=== PATIENT | male | born 1970 | race Caucasian/White ===

== ENCOUNTER 2018-06-07 07:46 | Emergency (ER) | payer MEDICARE, SELFPAY ==
--- NOTE | 2018-06-07 07:51 | ED.GENADUL_ITS ---
Discharge Plan Disposition Patient Disposition: HOME Condition: Stable Discharge Details Chief Complaint: RespSymp Clinical Impression: Cough Primary Care Provider: Bhargav Harper ED Provider: Alondra Gonzalez Discharge Instructions Instructions: Azithromycin (By mouth), Acute Cough (ED) Additional Instructions: Please return immediately to the emergency department if you develop any new or worsening symptoms or if you become otherwise concerned. It is extremely important that you make an appointment to be seen by your primary care doctor within the next 1 week in follow-up for this visit. Referrals: Bhargav Harper MD [Primary Care Provider] - Discharge Data Discharge Date/Time-TO BE ENTERED AT DEPARTURE: 06/07/18 10:27 Medical Decision Making Alfonso Sanabria is a 47-year-old man with a history of CP and no other major medical problems presenting to the emergency department with 2 weeks of cough without shortness of breath or fever. On exam patient is nontoxic-appearing. He has an intermittent dry cough, there is no whoop. Lungs are clear to auscultation bilaterally. Exam/history not consistent with sepsis, metabolic/ lyte derangement, ACS, acute aortic pathology. Concern for viral respiratory infection versus bacterial pneumonia. Doubt pertussis. Plan for flu swab, chest x-ray, albuterol for possible improvement in cough. Pt reports improvement after albuterol inh. CXR okay. Flu neg. Plan to update Tdap, Pt caring for young children, has had Tdap since childhood. Given persistence and recent worsening of cough, concern for possible occult PNA. Will treat with azithro. Lengthy discussion with Pt re: RTED precautions and importance of outpt f/u with PCP. Pt is amenable to the plan. Medical Records Medical records reviewed: Yes I reviewed the patient's medical records. Imaging Data Radiologic Study: Attestation: I personally reviewed and interpreted this imaging study as follows: Radiologist's impression: CHEST X-RAY: PA and lateral. No priors for comparison. The heart is normal in size. The lungs are clear. The mediastinal structures and pleura appear intact. CONCLUSION: Normal chest. Lab Data Lab results reviewed: Yes I reviewed the patient's lab results. HPI General Mode of arrival: ambulatory . Date/Time Provider Initiated Documentation: 06/07/18 07:50 . Limitations to Documentation: no limitations . Information obtained by: patient, family, RN notes reviewed and old records reviewed . HPI Narrative: Alfonso Sanabria is a 47-year-old man with history of CP and no other major medical problems presenting to the emergency department with cough. Patient reports that 2 weeks ago he felt like he had sinus symptoms with sinus pain and nasal congestion. He feels like this has moved into his chest , and he no longer has significant sinus symptoms, but has been coughing. Patient reports that he has coughing spells that are very severe and cause him to be lightheaded. Cough is productive. He denies having any pain, other than mild low left-sided back pain that he thinks is muscle spasm from being bent over during coughing. No fever, vomiting/diarrhea diarrhea, shortness of breath , rash, numbness/tingling/weakness, rash. He reports that he has been eating and drinking as usual. No recent travel. Takes no medications. Former smoker. 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 Related Data Allergies Allergy/AdvReac Type Severity Reaction Status Date / Time No Known Allergies Allergy Unverified 06/07/18 07:59 Review of Systems Review of Systems Constitutional: denies fevers Eyes: denies eye pain ENT: denies facial pain, dental pain, sore throat Cardiovascular: denies chest pain, edema Respiratory: denies SOB, reports cough GI: denies abdominal pain, vomiting, diarrhea : denies flank pain MSK: reports mild low back pain, denies neck pain, arthralgias, myalgias Skin: denies rash Neuro: denies headaches, lightheadedness, weakness [facility] Social History Smoking/Tobacco Use Status: Former Tobacco Use Exam Narrative Exam Narrative: Constitutional: well and [id number], pleasant, conversing normally HENT: head atraumatic, normocephalic normal inspection, mucous membranes moist Eyes: conjunctiva normal, sclera normal, pupils 3mm b/l Neck: no stridor, normal ROM, trachea midline Chest: normal inspection Resp: normal work of breathing, LCTAB Cardio: normal rate, normal rhythm, no murmur appreciated GI: abdomen soft, non-tender, non-distended Back: normal inspection, no rash Skin: warm, dry, normal color, no rash Neuro: alert, not altered, grossly non-focal, normal tone Ext: no edema Psych: normal mood, normal affect, normal behavior
[2018-06-07 07:52] VITALS: BP 129/91; PULSE 67; RESP 16; TEMP 36.6; O2SAT 97
--- NOTE | 2018-06-07 08:15 | DI.RAD_ITS ---
SYMPTOM/DIAGNOSIS: COUGH CHEST X-RAY: PA and lateral. No priors for comparison. The heart is normal in size. The lungs are clear. The mediastinal structures and pleura appear intact. CONCLUSION: Normal chest.
[2018-06-07] MEDS: Inhaler, Assist Device 1 EACH MC (08:32)
[2018-06-07] MEDS: Albuterol HFA 8 GM 60 PUFF INH IH (08:32)
[2018-06-07] MEDS: Azithromycin 250 MG TAB 500 MG PO (10:20)
[2018-06-07 10:26] VITALS: PULSE 76; RESP 16; TEMP 36.6; O2SAT 97
== END 2018-06-07 10:27 | disposition home or self-care (01) ==
LOC: ER 10:29
PROVIDERS: Emergency Provider Student in an Organized Health Care Education/Training Program; PCP Internal Medicine
DX: R05 Cough (principal); R42 Dizziness and giddiness; G80.9 Cerebral palsy, unspecified; Z87.891 Personal history of nicotine dependence
CPT/HCPCS: 87449; 90471; 99284; 71046; 99285

== ENCOUNTER 2018-08-19 08:31 | Outpatient (REF) | payer MEDICARE, SELFPAY ==
[2018-08-19 13:26] LABS: ALT 35 U/L (12-78); AST 22 U/L (15-37); Albumin 4.1 g/dL (3.4-5.0); Alkaline Phosphatase 68 U/L (46-116); Anion Gap 8.5 mmol/L (3-11); BUN 20 mg/dL (7-18); Bilirubin, Total 0.5 mg/dL (0.2-1.0); CO2 27.5 mmol/L (21.0-32.0); CREATININE 0.98 mg/dL (0.70-1.30); Calcium 9.2 mg/dL (8.5-10.1); Chloride 104 mmol/L (98-107); Cholesterol 118 mg/dL (50-200); Glucose 90 mg/dL (70-100); HDL Cholesterol 37 mg/dL (40-60); LDL CHOLESTEROL 63 mg/dL (<100); Potassium 4.4 mmol/L (3.5-5.1); Sodium 140 mmol/L (136-145); Total Protein 7.4 g/dL (6.4-8.2); Triglyceride 79 mg/dL (30-150)
== END 2018-08-19 08:51 ==
LOC: NCHCN 08:31
PROVIDERS: PCP Internal Medicine; Visit Provider Family Medicine
DX: G80.9 Cerebral palsy, unspecified (principal); Z13.6 Encounter for screening for cardiovascular disorders; Z82.49 Family history of ischemic heart disease and other diseases of the circulatory system
CPT/HCPCS: 80053; 80061; 83721

== ENCOUNTER → 2020-08-30 13:23 | Outpatient (BNVA) | payer MEDICARE, SELFPAY | PROVIDERS: PCP Internal Medicine; Referring Provider Internal Medicine; Visit Provider Physical Therapy Assistant | DX: Z12.11 Encounter for screening for malignant neoplasm of colon (principal) ==

== ENCOUNTER 2020-09-13 02:34 | Outpatient (CLI) | payer MEDICARE, SELFPAY ==
[2020-09-14 15:32] LABS: COVID-19 RT-PCR UVMMC Result Negative (Negative)
== END 2020-09-13 02:35 | disposition home or self-care (01) ==
LOC: LBO 02:35
PROVIDERS: PCP Internal Medicine; Visit Provider Surgery
DX: Z20.822 Contact with and (suspected) exposure to COVID-19 (principal); Z01.818 Encounter for other preprocedural examination
CPT/HCPCS: U0003; U0005

== ENCOUNTER 2020-09-17 07:05 | Day surgery (SDC) | payer MEDICARE, SELFPAY ==
--- NOTE | 2020-09-17 06:46 | COLE_ITS ---
Date of service: 09/17/20 Time of Service: 08:16 Colonoscopy Report Date of procedure: 09/17/20 Pre-op diagnosis general: Colon Cancer Screening Post-op diagnosis procedure note: other (mild diverticulosis, one polyp) Procedure: Colonoscopy with polypectomy Surgeon: Isela Borrero Anesthesia proc note operative: other (General/ASA 2/Danielito Billings, SHAR) Estimated blood loss (mL): 3 Pathology: other (rectal polyp) Complications: None Disposition: same day Indications: The patient is here for Colonoscopy pre-op. He has no family history of colon cancer. He has not had any bowel habit changes. -Discussed colonoscopy bowel prep as well as the procedure. Discussed possible complications of the procedure to include bleeding, pain, perforation, missed small lesion/polyp, sore throat, aspiration and adverse reaction to the medications. Questions were answered to patient?s satisfaction. No guarantees were implied or given. Prep: Miralax/Dulcolax Procedure Start Time: 08:16 Procedure End Time: 08:37 Retraction Time: 14 minutes Findings: one small polyp mild sigmoid diverticulosis Procedure Description: After informed consent was obtained the patient was taken to the procedure room and placed in a left decubitous position. Monitors were applied and a time out was done. The patients name, date of , procedure, allergies to medications and metal in their body was reviewed. The patient was then sedated. Once sedated and comfortable a rectal exam was done. External exam was normal. Internal exam revealed a normal sphincter tone and no palpable masses. The prostate felt smooth. The scope was then introduced and retro-flexed. No internal hemorrhoids, polyps or masses were identified on retro-flexion. The scope was then advanced to the cecum without difficulty. The ileocecal vlave and appendiceal orifice were identified. The prep was good. The scope was then slowly retracted over 14 minutes back into the rectum. Polyps were removed with cold forceps in the rectum. There was mild sigmoid diverticulosis noted. The scope was removed and the patient was woken up and taken back to Same day surgery in stable condition. The patient tolerated the procedure well and there were no immediate complicati ons. Follow up: The patient should follow up in 5 years unless they develop changes in bowel habits or other new gastrointestinal complaints.
--- NOTE | 2020-09-17 06:46 | W.PM.DSUDISC ---
Discharge Plan Disposition Patient Disposition: HOME Condition: Good Discharge Details Reason For Visit: Colon Cancer Screening Attending Provider: Isela Borrero Primary Care Provider: Bhargav Harper Home Meds and New Rx's Prescriptions: Continued polyethylene glycol 3350 [Miralax] 17 gram/dose powder 17 g PO DAILY RF: 0 Discontinued polyethylene glycol 3350 17 gram/dose powder 238 g PO ONCE Qty: 238 RF: 0 bisacodyl [Dulcolax (bisacodyl)] 5 mg tablet,delayed release (DR/EC) 5 mg PO ONCE Qty: 4 RF: 0 Discharge Instructions Instructions: Diverticulosis (DC) Additional Instructions: Findings: polyp mild diverticulosis Follow up: 5 years Please call if you develop: fevers >101.5 Nausea or Vomiting Abdominal pain that is not transient DAY SURGERY UNIT POST ENDOSCOPY INSTRUCTIONS 1. Because there will be medication in your system for the next 24 hours, you may feel a little sleepy. Your coordination will be affected. Therefore: a. Do not drive or operate dangerous equipment for 24 hours. b. Do not drink alcohol beverages for 24 hours (not even beer). c. Plan to go home and rest for the day. 2. Generally there are no restrictions on your activity after a day or so has gone by, but you may feel a bit fatigued for a few days. 3 After you arrive home you may have a light meal and return to a normal diet as you can tolerate it without feeling sick to your stomach. 4. After surgery, you may feel pain or discomfort. This should be only transient, but if it persists please contact your doctor. 5. If there are any questions regarding the findings of your procedure, please feel free to contact your doctor. 6. If you are unable to contact your doctor with a problem, contact the hospital at [phone]. 7. Continue all your regular medications unless directed otherwise. I understand the above instructions and have no questions. Signature of Patient or Responsible Adult Escort Date/Time Name of Responsible Adult Escort Signature of Nurse Date/Time Activity:: Activity as Tolerated Diet:: As Tolerated Discharge Orders Discharge Orders: Discharge Order (Routine); Ordered 09/17/20 Ordered By: Isela Borrero
[2020-09-17 07:26] VITALS: BP 140/101; PULSE 90; RESP 18; TEMP 36.5; O2SAT 98
[2020-09-17] MEDS: Lactated Ringers 1,000 ML 80 ML IV (07:52)
--- NOTE | 2020-09-17 08:20 | BOWEL_PTH ---
PATIENT: Alfonso Sanabria LOC: [facility] U#:[id number] AGE/SX: 50/M ROOM: RE09/17/[address]: Isela Borrero MD : 1970 BED: DIS: 09/17/2020 SPEC #: [id number] RECD: 09/17/20 12:42 STATUS: ISSA RE #: [id number] SONY: 09/17/20 08:[address]: Isela Borrero DEPT: Surgical Specimen RECD BY: Chely Giraldo ENTERED: 09/17/20 12:42 SP TYPE: Bowel OTHR DR: Bhargav Harper Tissues: 1 - BIOPSY BOWEL Procedures: GROSS AND MICRO LEVEL 4 Comments: [id number]
[2020-09-17 09:07] VITALS: BP 136/80; PULSE 73; RESP 20; TEMP 36.5; O2SAT 100
== END 2020-09-17 09:37 | disposition home or self-care (01) ==
LOC: SUR 07:05
PROVIDERS: PCP Internal Medicine; Visit Provider Surgery
PROC: 0DJD8ZZ Inspection of Lower Intestinal Tract, Via Natural or Artificial Opening Endoscopic (ICD-10-PCS; CPT 45378; principal; 2020-09-17 08:15)
DX: Z12.11 Encounter for screening for malignant neoplasm of colon (principal); K62.1 Rectal polyp; K57.30 Diverticulosis of large intestine without perforation or abscess without bleeding; G80.9 Cerebral palsy, unspecified
CPT/HCPCS: 45380; 88305; J2001

== ENCOUNTER 2020-09-22 13:56 | Emergency (ER) | payer MEDICARE, SELFPAY ==
[2020-09-22 13:59] VITALS: BP 165/103; PULSE 79; TEMP 36.6; O2SAT 98
--- NOTE | 2020-09-22 14:22 | ED.GENADUL_ITS ---
Discharge Plan Disposition Patient Disposition: HOME Condition: Stable Discharge Details Clinical Impression: Conjunctivitis Primary Care Provider: Cici Presley ED Provider: Bradford Casiano Home Meds and New Rx's Prescriptions: No Action polyethylene glycol 3350 [Miralax] 17 gram/dose powder 17 g PO DAILY RF: 0 Discharge Instructions Instructions: Conjunctivitis (ED) Additional Instructions: Erythromycin eye ointment as directed. Practice good hand washing. Please watch for new/worsening symptoms and return to the ER for any concerns. Contact your primary care provider on Thursday to discuss outpatient reevaluation Discharge Data Discharge Date/Time-TO BE ENTERED AT DEPARTURE: 09/22/20 14:27 Medical Decision Making 50-year-old gentleman, wears glasses but no contacts. He presents with left eye irritation, crusting and drainage began this morning, went to bed last night asymptomatic. Clinically this appears to be classic conjunctivitis. He has no additional medical concerns at this time. No signs of trauma, patient denies trauma. Extremely low suspicion for diagnoses such as foreign body, corneal abrasion, hyphema, glaucoma, etc. Discussed my thought process with patient. He is comfortable treating with antibiotics for conjunctivitis. Patient was given first dose of erythromycin eye ointment here in the ER. Medical Records Medical records reviewed: Yes I reviewed the patient's medical records. HPI General Mode of arrival: ambulatory . Date/Time Provider Initiated Documentation: 09/22/20 13:58 . Limitations to Documentation: no limitations . Information obtained by: patient . HPI Narrative: This is a 50-year-old gentleman, history of cerebral palsy, who wears glasses but no contacts. He reports that he went to bed last night asymptomatic, awoke this morning with le ft eye redness, irritation, crusting. He reports that the symptoms are itchy and irritation but no true pain. Denies blurry or double vision. Denies any injury to his eye. Denies any other symptoms such as headache, fever, ear pain, sore throat, cough, shortness of breath. No additional questions or concerns. Related Data Home Medications Medication Instructions Recorded Confirmed polyethylene glycol 3350 17 17 g PO DAILY 07/11/20 09/22/20 gram/dose oral powder Allergies Allergy/AdvReac Type Severity Reaction Status Date / Time No Known Allergies Allergy Unverified 09/22/20 14:02 General Stated Complaint: EyeProblem CRYSTAL: 4 Review of Systems Constitutional Constitutional: Denies fever(s) and Denies headache(s) Eyes Eyes: Denies change in vision, Denies diplopia, Reports eye discharge, Reports irritation and Denies photophobia ENT Ears, Nose, Mouth, and Throat: Denies otalgia, Denies headache(s) and Denies sore throat Integumentary/Breasts Skin/Breast: Denies rash Neurologic Neurologic: Denies headache(s) [facility] Medical History Cerebral palsy (R) sided weakness. Ambulates with a limp, and per pt. 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 Marijuana: t-7, couple hits Do you feel safe at home: Yes Do you feel safe in your relationship?: Yes Exam Const General: cooperative, healthy appearing, comfortable and no acute distress Orientation: alert and awake [facility] Head: normal to inspection, normocephalic and atraumatic General nose exam: external nose normal Face and sinus: normal facial exam Mouth: moist mucous membranes Eyes General: appearance normal, both eyes and all related structures Periorbital: periorbital findings normal Eyelids: eyelids normal and other (Left eyelid flipped, no foreign body) Conjunctivae: conjunctival abnormality left conjunctival injection and discharge purulent Sclera: sclerae normal Cornea: corneas normal Pupils: PERRL EOM: EOM intact bilaterally Direct ophthalmoscopy: normal light reflex Neck Neck: normal visual inspection, full ROM, no lymphadenopathy, trachea midline, supple and nontender Resp Effort & Inspection: normal respiratory effort and able to speak in complete sentences Skin General skin exam: no rashes or lesions noted Neuro General: patient alert, patient awake, moves all extremities and no focal motor deficits Cognition: normal cognition Speech: speech normal Sensory Exam: no sensory deficits noted Psych Appearance: grossly normal Mental Status: mental status grossly normal Course Vital Signs Vital signs: Vital Signs Temperature 36.6 C 09/22/20 13:59 Pulse 79 09/22/20 13:59 Blood Pressure 165/103 H 09/22/20 13:59 Pulse Oximetry 98 09/22/20 13:59 Temperature 36.6 C 09/22/20 13:59 Pulse 79 09/22/20 13:59 Respiratory Effort 09/22/20 14:17 Blood Pressure 165/103 H 09/22/20 13:59 Blood Pressure Position Sitting 09/22/20 13:59 Pulse Oximetry 98 09/22/20 13:59 Oxygen Delivery Method Room Air 09/22/20 13:59 Oxygen Flow Rate 0 09/22/20 13:59 Pain Level 5 09/22/20 13:59
[2020-09-22] MEDS: Erythromycin Ophth Oint 3.5 GM TUBE OS (14:26)
== END 2020-09-22 14:27 | disposition home or self-care (01) ==
PROVIDERS: Emergency Provider Physician Assistant; PCP Family Medicine
DX: H10.32 Unspecified acute conjunctivitis, left eye (principal)
CPT/HCPCS: 99283

== ENCOUNTER 2021-09-23 10:30 | Emergency (ER) | payer MEDICARE, MEDICAID, SELFPAY ==
[2021-09-23 10:35] VITALS: BP 131/80; PULSE 70; RESP 16; TEMP 36.6; O2SAT 98
--- NOTE | 2021-09-23 10:45 | DI.RAD_ITS ---
Exam(s) XR RIBS RT W PA LAT CHEST EXAM: XR RIBS RT W PA LAT CHEST CLINICAL HISTORY: Fall, Right Rib Pain TECHNIQUE: 2D digital imaging was performed. COMPARISON: CR XR CHEST 2V PA LATERAL from 06/07/2018 FINDINGS: MEDIASTINUM: Normal. HEART: Normal. PULMONARY VASCULATURE: Normal. LUNGS: Clear. PLEURAL SPACE: No pleural effusion or pneumothorax. BONE: Right ribs: Nondisplaced rib fracture distal 10th rib IMPRESSION: Nondisplaced fracture right 10th rib. DATA REPOSITORY: RADIATION DOSE DELIVERED:
--- NOTE | 2021-09-23 10:49 | ED.GENADUL_ITS ---
Discharge Plan Disposition Patient Disposition: HOME Condition: Stable Discharge Details Clinical Impression: Right rib fracture Primary Care Provider: Cici Presley ED Provider: Rosenda Valenzuela Home Meds and New Rx's Prescriptions: No Action polyethylene glycol 3350 [Miralax] 17 gram/dose powder 17 g PO DAILY 0RF Discharge Instructions Instructions: Rib Fracture (ED) Additional Instructions: X-rays show a single nondisplaced rib fracture on #10. No other evidence for pneumonia or collapsed lung. CT of your head shows nothing acute. Continue to apply ice and alternate heat, deep breathing. You may guard your rib cage when coughing or doing any lifting. Return sooner or be seen for any productive cough, fever, shortness of breath or any worsening pain. Follow up with primary care provider in 3-5 days. Return to ED sooner if any worsening or concerns. Increase oral fluids. Please take Tylenol or Ibuprofen with food every 4-6 hours as needed for pain and swelling. Referrals: Cici Presley [Primary Care Provider] - 3 days Discharge Data Discharge Date/Time-TO BE ENTERED AT DEPARTURE: 09/23/21 12:33 Medical Decision Making 51-year-old male presents to the ER status post a slip and fall on the ice on Thursday. He reports that he hit the right side of his head and right side of his chest. He denies any loss of consciousness. He does have a healing contusion noted to his right frontal scalp and some ecchymosis around his right orbit. Head CT benefits versus risk discussed with patient. At this time he agrees to have a head CT done to rule out intracranial hemorrhage or other abnormality. Chest x-ray rib series with PA chest ordered to rule out rib fractures. Head CT results show nothing acute he does have some left-sided encephalomalacia which is most likely related to his cerebral palsy. X-ray shows a nondisplaced fracture of the right 10th rib. No pleural effusion no pneumothorax. Discussed results with patient who verbalized understanding. Discussed home care regarding coughing or deep breathing. I did discuss strict return instructions and red flags such as increased shortness of breath, productive cough, fever, worsening pain or any concerns. Patient was hemodynamically stable and alert and oriented and remained so throughout his stay upon discharge. This text was generated using Sensorination system, please disregard any oddities of phrase or misspellings. HPI General Mode of arrival: ambulatory . Date/Time Provider Initiated Documentation: 09/23/21 10:39 . Limitations to Documentation: no limitations . Information obtained by: patient, RN notes reviewed and old records reviewed . HPI Narrative: 50-year-old male presents to the ER status post a slip and fall on the ice on Thursday. He reports that he hit the right side of his head and right side of his chest. He denies any loss of consciousness. He does have a healing contusion noted to his right frontal scalp and some ecchymosis around his right orbit. He does complain of some right lateral flank pain. Lung sounds are clear bilat erally. No ecchymosis or contusion noted to his torso. He denies any abdominal pain no chest pain, he denies any problems urinating or blood in his urine. No other associated symptoms. He denies any blurry vision or nausea. Past medical history include cerebral palsy and he does have some right arm contractures. Related Data Home Medications Medication Instructions Recorded Confirmed polyethylene glycol 3350 17 17 g PO DAILY 07/11/20 09/23/21 gram/dose oral powder (Miralax) Allergies Allergy/AdvReac Type Severity Reaction Status Date / Time No Known Allergies Allergy Unverified 09/23/21 10:41 General Stated Complaint: Trauma CRYSTAL: 3 Review of Systems All systems reviewed & are unremarkable except as noted in HPI and below Constitutional Constitutional: Denies weakness ENT Ears, Nose, Mouth, and Throat: Reports as per HPI, Denies dizziness and Denies neck pain Comments: Contusion and ecchymosis noted to his right frontal and right periorbital area. No cabrera sign. Musculoskeletal Musculoskeletal: Denies neck pain Neurologic Neurologic: Reports as per HPI, Denies dizziness and Denies weakness [facility] All Active Problems (Updated 09/23/21 @ 12:23 by Rosenda Valenzuela) Right rib fracture (Acute) Conjunctivitis (Acute) Colon polyp, hyperplastic (Acute ~08/2020) Medical History Cerebral palsy (R) sided weakness. Ambulates with a limp, and per pt. 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 Skin: Warm and Dry HEENT: Head: No palpable deformities, Normocephalic Eyes: Pupils PERRLA, EOM's intact. No periorbital eccymosis or step off Ears: Canal patent. Tympanic membranes are clear . No cabrera's sign, no hemptympanum. Nose/Face: Right frontal scalp healing contusion, yellow in color, ecchymosis surrounding the right periorbital space. Bones nontender to palpation and stable with manipulation. Mouth/Throat: No intraoral trauma. Teeth and mandible are intact. Neck: No midline tenderness, no step off, no deformity to palpation of C-spine. Trachea midline. Chest: No surface trauma. Mild tenderness to the right lateral rib cage crepitus or deformity. Lungs clear to ausculatation bilaterally. Heart: RRR, no rubs, murmurs or gallop. Abdomen: No abrasions, ecchymosis, or surface trauma. Nondistended. Nontender to palpation no guarding, rebound, or rigidity. Pelvis: Nontender to palpation and stable to compression. Femoral pulses strong and equal Extremities: no surface trauma. Sensation intact. Peripheral pulses intact and equal. Neuro: ANO x4, GCS 15, cranial nerves II through XII intact. Motor and sensory exam nonfocal. Reflexes are symmetric. Course Vital Signs Vital signs: Vital Signs Temperature 36.6 C 09/23/21 10:35 Pulse 70 09/23/21 10:35 Respiratory Rate 16 09/23/21 10:35 Blood Pressure 131/80 09/23/21 10:35 Pulse Oximetry 98 09/23/21 10:35 Temperature 36.6 C 09/23/21 10:35 Temperature Source Temporal Artery Scan 09/23/21 10:35 Pulse 70 09/23/21 10:35 Respiratory Rate 16 09/23/21 10:35 Respiratory Effort Non-Labored 09/23/21 10:42 Respiratory Depth Normal 09/23/21 10:42 Respiratory Pattern Normal 09/23/21 10:42 Blood Pressure 131/80 09/23/21 10:35 Blood Pressure Position Sitting 09/23/21 10:35 Pulse Oximetry 98 09/23/21 10:35 Oxygen Delivery Method Room Air 09/23/21 10:35 Oxygen Flow Rate 0 09/23/21 10:35 Pain Level 3 09/23/21 10:42
--- NOTE | 2021-09-23 11:11 | DI.CT_ITS ---
Exam(s) CT HEAD WO EXAM: CT HEAD WO CLINICAL HISTORY: Fall, Right Frontal Contusion. TECHNIQUE: Imaging Protocol: Axial computed tomography images with coronal and sagittal reformatted images were created and reviewed COMPARISON: No exams were available for comparison FINDINGS: Ventricles and Extra axial spaces: Compensatory dilatation of the left lateral ventricle adjacent to area of encephalomalacia. Hemorrhage: None. 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 Right hemisphere peers normal. Midline shift: None. Brainstem/Cerebellum: Normal. Calvarium: Normal. Visualized Paranasal sinuses/Mastoids: Clear. Soft Tissues: Unremarkable. IMPRESSION: Large area of encephalomalacia in the left parietal lobe which appears developmental. No acute intra cranial process. RADIATION DOSE DELIVERED: Total DLP DATA REPOSITORY: All CT scans at this facility are submitted to the National Radiology Data Registry (NRDR) Dose Index Registry (DIR) with the [employer] (A[employer]). RADIATION OPTIMIZATION: All CT scans at this facility use at least one of these dose optimization te chniques: automated exposure control; mA and/or kV adjustment per patient size (includes targeted exa ms where dose is matched to clinical indication); or iterative reconstruction.
== END 2021-09-23 12:33 | disposition home or self-care (01) ==
PROVIDERS: Emergency Provider Registered Nurse Emergency; PCP Family Medicine
DX: S22.31XA Fracture of one rib, right side, initial encounter for closed fracture (principal); S09.8XXA Other specified injuries of head, initial encounter; W00.0XXA Fall on same level due to ice and snow, initial encounter
CPT/HCPCS: 99284; 70450; 71046; 71100; 99283

== ENCOUNTER 2022-11-16 11:40 | Emergency (ER) | payer MEDICARE, MEDICAID, SELFPAY ==
[2022-11-16 11:43] VITALS: BP 130/78; PULSE 71; RESP 18; TEMP 36.7; O2SAT 100
--- NOTE | 2022-11-16 13:05 | DI.RAD_ITS ---
Exam(s) XR KNEE LT 3V AP,LAT,VICENTE EXAM: XR KNEE LT 3V AP,LAT,VICENTE CLINICAL HISTORY: left knee pain. TECHNIQUE: 2D digital imaging was performed. Three views. COMPARISON: No exams were available for comparison FINDINGS: BONES: No acute fracture is present. No bony destructive lesion is seen. Mild periarticular spurri ng. JOINTS: The knee is normally aligned. No joint effusion is seen. SOFT TISSUE: Venous varicosities seen medially. IMPRESSION: No acute abnormality. DATA REPOSITORY: RADIATION DOSE DELIVERED:
--- NOTE | 2022-11-16 13:23 | DI.VRAD_ITS ---
PROCEDURE INFORMATION: Exam: XR Left Knee Exam date and time: 11/16/2022 1:01 PM Age: 52 years old Clinical indication: Knee; Left; Patient HX: Fall/pain TECHNIQUE: Imaging protocol: Radiologic exam of the left knee. Views: 3 views. COMPARISON: No relevant prior studies available. FINDINGS: Bones/joints: Normal. Soft tissues: Normal. IMPRESSION: No acute findings. Dictated and Authenticated by: Fidencio Hernandez MD. Ordering:DAISY Mo MD
[2022-11-16 13:45] VITALS: BP 118/78; PULSE 63; RESP 16; O2SAT 100
[2022-11-16 13:46] VITALS: BP 118/78; PULSE 63; RESP 16; O2SAT 100
--- NOTE | 2022-11-16 15:54 | ED.GENADUL_ITS ---
Discharge Plan Disposition Patient Disposition: Home Discharge Details Clinical Impression: Knee strain Primary Care Provider: Cici Presley ED Provider: Chely Villanueva Home Meds and New Rx's Prescriptions: Continued polyethylene glycol 3350 [Miralax] 17 gram/dose powder 17 g PO DAILY Discharge Instructions Instructions: Swollen Knee Joint (ED) Additional Instructions: Take ibuprofen and Tylenol as needed for pain Repeat assessment in 1 week with persistent pain Weightbearing as tolerated Return earlier should you have new or worsening complaints Referrals: Cici Presley [Primary Care Provider] - 1 day Discharge Data Discharge Date/Time-TO BE ENTERED AT DEPARTURE: 11/16/22 13:58 Medical Decision Making 52-year-old male presents with left knee and ankle pain after twisting mechanism, neurovascularly intact, x-rays do not show evidence of acute abnormality per radiology interpretation my review Placed in the knee brace for comfort and referred back to primary care physician Ibuprofen and Tylenol as needed pain Return precautions discussed and patient expressed understanding No clinical evidence of ultrasound HPI General Date/Time Provider Initiated Documentation: 11/16/22 12:12 . HPI Narrative: This 52-year-old male reports with left knee and ankle pain after his leg went through the deck. Denies any additional injuries. Denies any history of coag ulopathy. Related Data Home Medications Medication Instructions Recorded Confirmed polyethylene glycol 3350 17 17 g PO DAILY 07/11/20 11/16/22 gram/dose oral powder (Miralax) Allergies Allergy/AdvReac Type Severity Reaction Status Date / Time No Known Allergies Allergy Unverified 11/16/22 11:45 General Stated Complaint: Orthopedic CRYSTAL: 4 PFSH All Active Problems (Updated 11/16/22 @ 13:45 by ILANA Mercedes) Knee strain (Acute) Conjunctivitis (Acute) Colon polyp, hyperplastic (Acute ~08/2020) Medical History Cerebral palsy (R) sided weakness. Ambulates with a limp, and per pt. 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 Social History Smoking/Tobacco Use Status: Former Tobacco Use Quit Date: 07/27/98 Smoking risk assessment performed?: Yes Alcohol Intake: current Alcohol Intake frequency: holidays/special occasions only Drug use: Daily Substance use type: marijuana Do you feel safe at home: Yes Do you feel safe in your relationship?: Yes Exam Narrative Exam Narrative: Patient is alert and oriented, pleasant in demeanor, tenderness to left knee and left ankle, no obvious deformity or visible sign of trauma, neurovascularly intact, no tenderness to left hip, no calf swelling or tenderness Course Vital Signs Vital signs: Vital Signs Temperature 36.7 C 11/16/22 11:43 Pulse 71 11/16/22 11:43 Respiratory Rate 18 11/16/22 11:43 Blood Pressure 130/78 11/16/22 11:43 Pulse Oximetry 100 11/16/22 11:43 Temperature 36.7 C 11/16/22 11:43 Pulse 63 11/16/22 13:46 Respiratory Rate 16 11/16/22 13:46 Respiratory Effort Normal 11/16/22 11:45 Blood Pressure 118/78 11/16/22 13:46 Blood Pressure Position Sitting 11/16/22 11:43 Pulse Oximetry 100 11/16/22 13:46 Oxygen Delivery Method Room Air 11/16/22 13:45 Oxygen Flow Rate 0 11/16/22 13:45 Pain Level 5 11/16/22 13:45
== END 2022-11-16 13:58 | disposition home or self-care (01) ==
PROVIDERS: Emergency Provider Physician Assistant; PCP Family Medicine
DX: S83.92XA Sprain of unspecified site of left knee, initial encounter (principal); W13.8XXA Fall from, out of or through other building or structure, initial encounter
CPT/HCPCS: 29505; 73562; 99283

== ENCOUNTER 2022-11-21 00:20 | Outpatient (CLI) | payer MEDICARE, MEDICAID, SELFPAY ==
--- NOTE | 2022-11-21 | DI.RAD_ITS ---
Exam(s) XR ANKLE LT COMPLETE EXAM: XR ANKLE LT COMPLETE CLINICAL HISTORY: LT ANKLE PAIN, M25.572 TECHNIQUE: 2D digital imaging was performed. Three views. COMPARISON: No exams were available for comparison FINDINGS: BONES: No acute fracture is present. No bony destructive lesion is seen. Heel spurs. JOINTS:The ankle mortise is normally aligned. SOFT TISSUE: Normal. IMPRESSION: Unremarkable radiographs of the left ankle. Heel spurs. DATA REPOSITORY: RADIATION DOSE DELIVERED:
== END 2022-11-21 00:40 ==
LOC: DI 00:20
PROVIDERS: PCP Family Medicine; Visit Provider Family Medicine
DX: M25.572 Pain in left ankle and joints of left foot (principal)
CPT/HCPCS: 73610

== ENCOUNTER 2022-11-27 14:54 | Outpatient (REF) | payer MEDICARE, MEDICAID, SELFPAY ==
[2022-11-27 15:33] LABS: HCT 42.2 % (40.0-50.0); HGB 14.3 g/dL (13.5-17.5); MCH 29.7 pg (27.0-33.0); MCHC 33.9 % (32.0-36.0); MCV 88 fL (80-95); MPV 10.7 fL (8.0-11.0); Platelet Count 239 10^3/uL (130-400); RBC 4.81 10^6/uL (4.36-5.78); RDW 13.1 % (11.8-14.1); RDW-SD 42.4 fL; WBC 5.92 10^3/uL (4.4-10.8)
[2022-11-27 15:37] LABS: Anion Gap 9.4 mmol/L (3-11); BUN 9 mg/dL (7-18); CO2 29.6 mmol/L (21.0-32.0); Calcium 9.7 mg/dL (8.5-10.1); Chloride 102 mmol/L (98-107); Estimated GFR 89.44 (mL/min/1.73m2); Glucose 96 mg/dL (74-106); Sodium 141 mmol/L (136-145)
== END 2022-11-27 14:55 | disposition home or self-care (01) ==
LOC: NCHCN 14:54
PROVIDERS: PCP Family Medicine; Visit Provider Family Medicine
DX: G80.9 Cerebral palsy, unspecified (principal)
CPT/HCPCS: 80048; 85027

== ENCOUNTER 2022-12-21 09:08 | Emergency (ER) | payer MEDICARE, MEDICAID, SELFPAY ==
[2022-12-21 09:16] VITALS: BP 139/87; PULSE 75; RESP 18; TEMP 36.8; O2SAT 100
--- NOTE | 2022-12-21 09:30 | DI.RAD_ITS ---
Exam(s) XR TOE RT GREAT EXAM: XR TOE RT GREAT CLINICAL HISTORY: great toe injury. TECHNIQUE: 2D digital imaging was performed. COMPARISON: No exams were available for comparison FINDINGS: 3 views No evidence of fracture nor dislocation nor radiopaque foreign body. Bone density normal. No osseou s lesions. No degenerative changes. No erosions. IMPRESSION: No significant radiograph findings in the great toe. DATA REPOSITORY: RADIATION DOSE DELIVERED:
--- NOTE | 2022-12-21 10:20 | DI.VRAD_ITS ---
PROCEDURE INFORMATION: Exam: XR Right Toe(s) Exam date and time: 12/21/2022 10:07 AM Age: 52 years old Clinical indication: Other: Great toe injury TECHNIQUE: Imaging protocol: Radiologic exam of the right toes. Views: Minimum 2 views. COMPARISON: No relevant prior studies available. FINDINGS: Bones/joints: There is no evidence of acute fracture.There is no evidence of malalignment or dislocation. Soft tissues: Soft tissue swelling of the great toe IMPRESSION: There is no evidence of acute fracture.There is no evidence of malalignment or dislocation. Dictated and Authenticated by: She Marti MD. Ordering:DAISY Mo MD
[2022-12-21 11:55] VITALS: BP 135/90; PULSE 65; RESP 16; O2SAT 99
[2022-12-21] MEDS: Bupivacaine 0.5% Pres-Free 30 ML VIAL (11:55)
--- NOTE | 2022-12-21 14:01 | W.ED.GENAD ---
Discharge Plan Disposition Patient Disposition: Home Discharge Details Clinical Impression: Nail avulsion, toe Primary Care Provider: Cici Presley ED Provider: Chely Villanueva Home Meds and New Rx's Prescriptions: New cephalexin 500 mg capsule 500 mg PO Q6H 7 Days Qty: 28 0RF Continued polyethylene glycol 3350 [Miralax] 17 gram/dose powder 17 g PO DAILY Discharge Instructions Additional Instructions: Take antibiotic as prescribed Keep dressing in place for the next 2 to 4 days, elevate, wear postop shoe Ibuprofen and Tylenol as needed for pain I have written you for small amount of opiate analgesia should you need it tonight, this is addictive and do not drive for 8 hours after taking this medication Return earlier should you have spreading redness, fever, worsening pain Follow-up with the scientific investigator or primary care physician for reassessment kiesha listed the [facility] scientific investigator Suture removal in 12 to 14 days Referrals: Cici Presley [Primary Care Provider] - Brenda Bhatt [[facility] STAFF PHYSICIAN] - Discharge Data Discharge Date/Time-TO BE ENTERED AT DEPARTURE: 12/21/22 11:57 Medical Decision Making 52-year-old male with injury to right great toe Concern that the toenail is avulsed from the nail fold, will repair and replace nail Discussed with patient that its been approximately a week since the injury occurred and may be unsuccessful, he is referred to podiatry in the outpatient setting He is placed on antibiotics Given a postop shoe Return precautions reviewed and patient expressed understanding Sutures will need to be removed in 12 days HPI General Date/Time Provider Initiated Documentation: 12/21/22 09:17. HPI Narrative: This 52-year-old male presents with report of pain to his right great toe. States he was walking a lot a week prior and he thinks he pulled his right great toenail off. States he had pain and drainage since that time. History of cerebral palsy. Denies any fever or chills. Denies any redness. Related Data Home Medications Medication Instructions Recorded Confirmed polyethylene glycol 3350 17 17 g PO DAILY 07/11/20 12/21/22 gram/dose oral powder (Miralax) cephalexin 500 mg capsule 500 mg PO Q6H 7 days #28 caps 12/21/22 Previous Rx's Medication Instructions Recorded cephalexin 500 mg capsule 500 mg PO Q6H 7 days #28 caps 12/21/22 Allergies Allergy/AdvReac Type Severity Reaction Status Date / Time No Known Allergies Allergy Unverified 11/16/22 11:45 General Stated Complaint: Orthopedic CRYSTAL: 4 PFSH All Active Problems (Updated 12/21/22 @ 11:01 by ILANA Mercedes) Nail avulsion, toe (Acute) Conjunctivitis (Acute) Colon polyp, hyperplastic (Acute ~08/2020) Medical History Cerebral palsy (R) sided weakness. Ambulates with a limp, and per pt. 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 Social History Smoking/Tobacco Use Status: Former Tobacco Use Quit Date: 07/27/98 Smoking risk assessment performed?: Yes Alcohol Intake: current Alcohol Intake frequency: holidays/special occasions only Drug use: Daily Substance use type: marijuana Do you feel safe at home: Yes Do you feel safe in your relationship?: Yes Exam Extrem Other: Right great toe with nail avulsed from nail folds, serosanguineous drainage and ecchymosis noted, tenderness, no erythema crepitus Course Vital Signs Vital signs: Vital Signs Temperature 36.8 C 12/21/22 09:16 Pulse 75 12/21/22 09:16 Respiratory Rate 18 12/21/22 09:16 Blood Pressure 139/87 12/21/22 09:16 Pulse Oximetry 100 12/21/22 09:16 Temperature 36.8 C 12/21/22 09:16 Temperature Source Oral 12/21/22 09:16 Pulse 65 12/21/22 11:55 Respiratory Rate 16 12/21/22 11:55 Respiratory Effort Normal, Non-Labored 12/21/22 09:17 Blood Pressure 135/90 12/21/22 11:55 Blood Pressure Position Sitting 12/21/22 09:16 Pulse Oximetry 99 12/21/22 11:55 Oxygen Delivery Method Room Air 12/21/22 09:16 Oxygen Flow Rate 0 12/21/22 09:16 Pain Level 2 12/21/22 09:16 Procedures Other Description: Digital block to great toe was performed with 1% lidocaine, 3 cc Nail was then replaced into the nail fold and sutured down with two 3-0 sutures Wound was cleansed and dressed Tolerated procedure without incident
== END 2022-12-21 11:57 | disposition home or self-care (01) ==
PROVIDERS: Emergency Provider Physician Assistant; PCP Family Medicine
DX: S91.201A Unspecified open wound of right great toe with damage to nail, initial encounter (principal); X58.XXXA Exposure to other specified factors, initial encounter
CPT/HCPCS: 11730; 99283; 73660; 99284

== ENCOUNTER 2023-01-20 09:16 | Outpatient (CLI) | payer MEDICARE, MEDICAID, SELFPAY ==
--- NOTE | 2023-01-20 09:50 | DI.RAD_ITS ---
Exam(s) XR KNEE LT 3V AP,LAT,VICENTE EXAM: XR KNEE LT 3V AP,LAT,VICENTE CLINICAL HISTORY: LT KNEE PAIN, M25.562. TECHNIQUE: 2D digital imaging was performed. Three views. COMPARISON: CR,XR XR KNEE LT 3V AP,LAT,VICENTE from 11/16/2022 FINDINGS: BONES: No acute fracture is present. No bony destructive lesion is seen. JOINTS: The knee is normally aligned. No joint effusion is seen. Joint spaces are maintained. There is minimal periarticular spurring. SOFT TISSUE: Normal. IMPRESSION: Minimal degenerative changes. DATA REPOSITORY: RADIATION DOSE DELIVERED:
== END 2023-01-20 09:36 ==
LOC: DI 09:20
PROVIDERS: PCP Family Medicine; Visit Provider Family Medicine
DX: M17.12 Unilateral primary osteoarthritis, left knee (principal)
CPT/HCPCS: 73562

== ENCOUNTER 2024-09-01 05:46 | Emergency (ER) | payer MEDICARE, MEDICAID, SELFPAY ==
[2024-09-01] VITALS (8 sets, daily range): BP systolic 114–149; BP diastolic 58–81; PULSE 101–120; RESP 18; TEMP 36.8; O2SAT 95–100
--- NOTE | 2024-09-01 05:45 | RT.EKG_ITS ---
APPROVED REPORT Exam: Resting ECG Reason for Exam: sob Patient Location: E HR:118 bpm ECG Measurements Heart Rate 118 AXIS SD 118 P 73 QRSd 78 QRS 76 QT 292 T -48 QTc 410 Conclusion Sinus tachycardia...rate> 99 Repol abnrm suggests ischemia, inferior leads...ST dep, T neg, II III aVF Sinus tachy at 120 Normal [place] and Interval ST changes that are likely rate related. No old for comparison.
--- NOTE | 2024-09-01 05:47 | ED.GENADUL_ITS ---
Discharge Plan Disposition Patient Disposition: Home Condition: Good Discharge Details Clinical Impression: Influenza A Primary Care Provider: Hood Pinon ED Provider: Demarcus Borja [place] Samuel and New Rx's Prescriptions: New oseltamivir [Tamiflu] 75 mg capsule 75 mg PO BID 5 Days Qty: 10 0RF Continued polyethylene glycol 3350 [Miralax] 17 gram/dose powder 17 g PO DAILY PRN Discharge Instructions Instructions: Flu, Adult ED Additional Instructions: You were found to have influenza A and should plan to stay home, rest, hydrate over the next few days. A prescription for Tamiflu has been sent to your pharmacy which you should begin today. You may alternate acetaminophen with ibuprofen for fever and discomfort. Follow-up with primary care next week if you are not improving. Return to ED for any mental status change, difficulty breathing, persistent vomiting, any other concerns. Referrals: Hood Pinon MD [Primary Care Provider] - [facility] General Mode of arrival: ambulatory . Date/Time Provider Initiated Documentation: 09/01/24 05:47 . Limitations to Documentation: no limitations . Information obtained by: patient and RN notes reviewed . HPI Narrative: Patient presents to ED with complaint of generalized weakness, URI symptoms, sweats and chills, body aches. Feels lightheaded and dizzy when attempting to walk. Onset of symptoms around midnight when he got up to go to the bathroom. Was recently around grandchildren who have subsequently developed similar symptoms. Chest pain only with deep coughing. No abdominal complaints. No shortness of breath. Related Data Home Medications ?Medication ?Instructions ?Recorded ?Confirmed polyethylene glycol 3350 17 17 g PO DAILY PRN 07/11/20 09/01/24 gram/dose oral powder (Miralax) oseltamivir 75 mg capsule (Tamiflu) 75 mg PO BID 5 days #10 caps 09/01/24 Previous Rx's ?Medication ?Instructions ?Recorded oseltamivir 75 mg capsule (Tamiflu) 75 mg PO BID 5 days #10 caps 09/01/24 Allergies Allergy/AdvReac Type Severity Reaction Status Date / Time No Known Allergies Allergy Unverified 09/01/24 05:53 General CRYSTAL: 4 Review of Systems Narrative: Per HPI Exam Narrative Exam Narrative: Const: WDWN male in NAD. VS per triage. HEENT: NC/AT. Normal facial exam. Neck: Supple. Trachea midline. Lungs: Normal respiratory effort. Lungs are clear. Cor: Tachy. RRR without murmur. Good radial pulses. GI: Soft/ND/NT. Neuro: A+O x 3. Normal speech, mentation. Medical Decision Making Patient presenting with what likely is influenza, possibly COVID. He is quite tachycardic with resulting weakness and dizziness. His EKG is sinus tachycardia with some nonspecific ST changes and depression that are likely rate related. He is only having chest pain with cough. Saturations are good and lungs are clear. Given his tachycardia and feeling of weakness and dizziness will place IV and give a liter of saline, IV ketorolac, check CBC and BMP as well as nasal swab. Do not think he requires chest x-ray at this time given normal saturations and clear lungs on exam. Patient is positive for influenza A. CBC and BMP are unremarkable. Heart rate down to 100 with a liter of saline. Will plan discharge home with instructions to rest and hydrate. Will provide prescription for Tamiflu and recommend alternating acetaminophen with ibuprofen. Follow-up with primary care next week if needed. Return precautions provided. Lab Data Lab results reviewed: Yes I reviewed the patient's lab results. Lab results narrative: see [facility] ECG Data Attestation: I personally reviewed and interpreted this ECG (s) as follows: Prior ECG tracings: not available for review Interpretation: see MDM/EKG [facility] All Active Problems (Updated 09/01/24 @ 06:46 by Demarcus Borja MD) Influenza A (Acute) Colon polyp, hyperplastic (Acute ~08/2020) Medical History Cerebral palsy (R) sided weakness. Ambulates with a limp, and per pt. 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
[2024-09-01] MEDS: Normal Saline Flush 10 ML SYR IVP (06:13)
[2024-09-01] MEDS: Ketorolac 15 MG/ML VIAL IVP (06:13)
[2024-09-01] MEDS: Normal Saline 1,000 ML 1000 ML IV (06:13)
[2024-09-01 06:22] LABS: HGB 13.7 g/dL (13.5-17.5); MCH 30.2 pg (27.0-33.0); MCHC 34.3 % (32.0-36.0); MCV 88 fL (80-95); MPV 9.5 fL (8.0-11.0); Platelet Count 161 10^3/uL (130-400); RBC 4.53 10^6/uL (4.36-5.78); RDW 12.2 % (11.8-14.1); RDW-SD 39.8 fL; WBC 7.75 10^3/uL (4.4-10.8)
[2024-09-01 06:33] LABS: Anion Gap 9.1 mmol/L (3-11); BUN 6 mg/dL (7-18); CO2 28.9 mmol/L (21.0-32.0); CREATININE 1.2 mg/dL (0.70-1.30); Calcium 9.4 mg/dL (8.5-10.1); Chloride 104 mmol/L (98-107); Estimated GFR 70.98 (mL/min/1.73m2); Glucose 125 mg/dL (74-106); Potassium 3.8 mmol/L (3.5-5.1); Sodium 142 mmol/L (136-145)
[2024-09-01 06:37] LABS: COVID-19 PCR Negative (Negative); Influenza A PCR Positive (Negative); Influenza B PCR Negative (Negative); RSV PCR Negative (Negative)
== END 2024-09-01 06:59 | disposition home or self-care (01) ==
PROVIDERS: Emergency Provider Emergency Medicine; PCP Family Medicine
DX: J10.1 Influenza due to other identified influenza virus with other respiratory manifestations (principal); Z87.891 Personal history of nicotine dependence
CPT/HCPCS: 36415; 80048; 85027; 87637; 93005; 96374; 99284; 93010; J1885

== ENCOUNTER 2024-11-26 07:21 | Emergency (ER) | payer MEDICARE, MEDICAID, SELFPAY ==
[2024-11-26] VITALS (17 sets, daily range): BP systolic 128–184; BP diastolic 75–97; PULSE 79–115; RESP 13–20; TEMP 37.1; O2SAT 94–99
--- NOTE | 2024-11-26 07:15 | RT.EKG_ITS ---
APPROVED REPORT Exam: Resting ECG Reason for Exam: Numbness Patient Location: E HR:98 bpm ECG Measurements Heart Rate 98 AXIS DC 127 P 77 QRSd 77 QRS 78 QT 326 T -88 QTc 417 Conclusion Sinus rhythm...normal P axis, V-rate 60- 99 No Occlusion [place]
--- NOTE | 2024-11-26 07:33 | ED.GENADUL_ITS ---
Discharge Plan Disposition Patient Disposition: Home Discharge Details Clinical Impression: Periapical abscess Primary Care Provider: Hood Pinon ED Provider: Andi Ruvalcaba Home Meds and New Rx's Prescriptions: New amoxicillin-pot clavulanate 875-125 mg tablet 1 tab PO BID 10 Days Qty: 20 0RF Continued acetaminophen 500 mg capsule 500 mg PO Q6H PRN Discharge Instructions Instructions: Tooth Abscess (DC) Additional Instructions: You are seen in the emergency department for the tingling in your face. Your blood work shows that your kidneys are working well and you have no signs of damage to your heart. As we discussed please take these antibiotics as directed. Please note your blood pressure was quite high the emergency department. Please follow-up with your primary care provider. Please also call a dentist on Thursday morning for follow-up as the antibiotics will only help for certain period of time. If you develop shortness of breath fevers or cannot eat or drink please return to the emergency department. For your pain please take medications as follows: 1. Take acetaminophen (Tylenol), 1,000 mg (two 500 mg tabs) every 6 hours [2. Take ibuprofen (Advil), 400 mg every 6 hours.] Discharge Data Discharge Date/Time-TO BE ENTERED AT DEPARTURE: 11/26/24 10:18 HPI General Date/Time Provider Initiated Documentation: 11/26/24 07:33 . HPI Narrative: MDM This is a quite well-appearing tachycardic but normothermic 54-year-old male with percussive tenderness concerning for odontogenic infection for which patient will receive amoxicillin clavulanic acid. Given his facial tingling injury I considered CVA. He is neurologically intact beyond his baseline right upper extremity clenched fist secondary to his cerebral palsy. He notices no decrease sensation in his face. His cranial nerves are intact so I do not feel that his headache over the past 2 weeks represents CVA so I did not feel that the patient would be a TNK candidate nor would he be a thrombectomy candidate as I did not order a CT scan of his head and angiogram of his head and neck nor consult neurology. No seizures to suggest benefit from EEG. Headache was not sudden in onset so I am not suspicious for subarachnoid hemorrhage I do not feel the patient requires a CT angiogram of his head. No fevers or nuchal rigidity to suggest meningitis. No generator exposure to suggest carbon monoxide toxicity. No recent chiropractic manipulation to suggest cervical arterial dissection. Patient is having no chest pain however tingling sensation in left hand will obtain ECG out of abundance of precaution. No history of HIV to suggest necrotizing gingivitis. Uvula midline so my suspicion is low for peritonsillar abscess. No limitations in range of motion to neck to suggest retropharyngeal abscess. ECG nonischemic showing persistent mild ST segment depressions in the inferior leads. No ST segment elevations. No acute injury pattern. Patient has not seen a dentist in a number of years. Will treat with 1 week of amoxicillin clavulanic acid provide return indications of labs are reassuring advised outpatient dental follow-up. 8:21 AM CBC lacks anemia thrombocytopenia and leukocytosis. 8:40 AM Reassuring labs on CBC. Normal magnesium. Troponin less than upper limit of normal. 4:45 PM Returned due to patient care. Patient and I discussed that he should follow-up with a dentist. His blood pressure normalized in the ED. Discussed that he should return to the ED if he developed any worsening symptoms fevers could not eat or drink or had any other concerns. He understood his return indications and was discharged with empiric trial of expectant outpatient management. Chronic conditions affecting the care of the patient: Cerebral palsy History obtained from an outside historian: External record review: N/A Diagnostic interpretations performed by me: Per my independent interpretation chest x-ray shows:N/A Per my independent interpretation EKG shows: Regular rate and rhythm intervals within normal limits ]Medications: Acetaminophen, ketorolac amoxicillin/clavulanate counseled Social determinants of health affecting disposition: N/A Management discussed with: N/A Treatment/interventions considered: N/A Response to therapies provided: N/A HPI This is a 54-year-old male right emergency department via private vehicle with his in the setting of intermittent headache over the past approximately 2 weeks. Patient reports he is also pain in his tooth. Today he noticed that his nose lips and left fingers began feeling tingly. He denies any specific weakness. No falls. No syncope. No chest pain shortness of breath fevers nausea vomiting or abdominal pain. Patient occasionally smokes marijuana but denies routine tobacco or illicits. He took acetaminophen 500 mg yesterday. He has had no rash or any new medications. He has intermittently had some tingling to his nose. Exam General: Well-appearing in no acute distress speaking in complete sentences. Head: Normocephalic, atraumatic. Eye:[Pupils equal, round reactive to light.] Extraocular eye movements intact. No conjunctival injection. No scleral icterus. Ear, nose, mouth, throat: Maxillary teeth not present. Percussive tenderness mandibular molars which have signs of decay. Uvula midline. Normal voice, handling secretions normally. Neck: Trachea midline. Good range of motion in neck. Cardiovascular: Well-perfused distal extremities. Regular rate and rhythm Respiratory: Nonlabored respiration. Clear lungs bilaterally. Gastrointestinal: Nondistended abdomen. Soft nontender Musculoskeletal: No edema. Moving all 4 extremities spontaneously. Skin: Normal for age and race, grossly normal temperature and turgor. No acute rash. Neurologic: GCS 15. Cranial nerves II through XII intact grossly. Bilateral upper and lower extremities 5 out of 5 strength. Right hand with chronic contracture patient reports a secondary to CP. No pronator drift. Psychiatric: Mood and manner are appropriate. Grooming and personal hygiene are appropriate. Related Data Home Medications ?Medication ?Instructions ?Recorded ?Confirmed acetaminophen 500 mg capsule 500 mg PO Q6H PRN 11/26/24 11/26/24 amoxicillin 875 mg-potassium 1 tab PO BID 10 days #20 tabs 11/26/24 clavulanate 125 mg tablet Previous Rx's ?Medication ?Instructions ?Recorded amoxicillin 875 mg-potassium 1 tab PO BID 10 days #20 tabs 11/26/24 clavulanate 125 mg tablet Allergies Allergy/AdvReac Type Severity Reaction Status Date / Time No Known Allergies Allergy Unverified 11/26/24 07:31 General Stated Complaint: Headache CRYSTAL: 3 Course Vital Signs Vital signs: Vital Signs Temperature 37.1 C 11/26/24 07:24 Pulse 115 H 11/26/24 07:24 Respiratory Rate 18 11/26/24 07:24 Blood Pressure 184/94 H 11/26/24 07:24 Pulse Oximetry 99 11/26/24 07:24 Temperature 37.1 C 11/26/24 07:24 Temperature Source Oral 11/26/24 07:24 Pulse 115 H 11/26/24 07:24 Respiratory Rate 18 11/26/24 07:24 Blood Pressure 184/94 H 11/26/24 07:24 Pulse Oximetry 99 11/26/24 07:24 Medical Decision Making Quality:SDOH Health Related Social Needs: No Data to Display PFSH All Active Problems (Updated 11/26/24 @ 08:03 by Andi Ruvalcaba MD) Periapical abscess (Acute) Colon polyp, hyperplastic (Acute ~08/2020) Medical History Cerebral palsy (R) sided weakness. Ambulates with a limp, and per pt. 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
[2024-11-26 08:13] LABS: Abs Immature Grans 0.02 10^3/uL (0.0-0.06); Absolute Basophil Count 0.03 10^3/uL (0.0-0.2); Absolute Eosinophil Count 0.04 10^3/uL (0.0-0.7); Absolute Lymphocyte Count 1.48 10^3/uL (1.2-3.4); Absolute Monocyte Count 0.32 10^3/uL (0.1-0.8); Absolute Neutrophil Count 3.76 10^3/uL (1.2-6.7); Basophils % 0.5 %; Eosinophils % 0.7 %; HCT 41.9 % (40.0-50.0); HGB 14.5 g/dL (13.5-17.5); Immature Grans % 0.4 %; Lymphocytes % 26.2 %; MCH 30.1 pg (27.0-33.0); MCHC 34.6 % (32.0-36.0); MCV 87 fL (80-95); MPV 9.5 fL (8.0-11.0); Monocytes % 5.7 %; Neutrophils % 66.5 %; Platelet Count 205 10^3/uL (130-400); RBC 4.81 10^6/uL (4.36-5.78); RDW 11.9 % (11.8-14.1); RDW-SD 38.6 fL; WBC 5.65 10^3/uL (4.4-10.8)
[2024-11-26] MEDS: Acetaminophen 500 MG TAB 1000 MG PO (08:13)
[2024-11-26] MEDS: Amoxicillin 875/Clav. 125 TAB PO (08:13)
[2024-11-26] MEDS: Ketorolac 15 MG/ML VIAL IVP (08:13)
[2024-11-26 08:30] LABS: Anion Gap 10.2 mmol/L (3-11); BUN 8 mg/dL (7-18); CO2 26.8 mmol/L (21.0-32.0); CREATININE 0.9 mg/dL (0.70-1.30); Calcium 9.6 mg/dL (8.5-10.1); Chloride 103 mmol/L (98-107); Estimated GFR 100.24 (mL/min/1.73m2); Glucose 110 mg/dL (74-106); Potassium 3.9 mmol/L (3.5-5.1); Sodium 140 mmol/L (136-145); Troponin I 5 ng/L (<or=76)
[2024-11-26 09:59] LABS: Troponin I 6 ng/L (<or=76)
== END 2024-11-26 10:18 | disposition home or self-care (01) ==
LOC: ER 09:03
PROVIDERS: Emergency Provider Emergency Medicine; PCP Family Medicine
DX: K04.7 Periapical abscess without sinus (principal); R51.9 Headache, unspecified; G80.9 Cerebral palsy, unspecified; Z87.891 Personal history of nicotine dependence
CPT/HCPCS: 36415; 80048; 93005; 96374; 99284; 83735; 84484; 85025; 93010; J1885

== ENCOUNTER 2024-11-28 11:12 | Emergency (ER) | payer MEDICARE, MEDICAID, SELFPAY ==
[2024-11-28] VITALS (39 sets, daily range): BP systolic 125–162; BP diastolic 74–96; PULSE 67–107; RESP 10–25; TEMP 36.6; O2SAT 94–100
--- NOTE | 2024-11-28 11:00 | RT.EKG_ITS ---
APPROVED REPORT Exam: Resting ECG Reason for Exam: chest pain Patient Location: E HR:91 bpm ECG Measurements Heart Rate 91 AXIS NV 127 P 75 QRSd 75 QRS 75 QT 347 T [id number] QTc 427 Conclusion Sinus rhythm. 91 normal axis no stemi
[2024-11-28] MEDS: MORPHine 10 MG/ML VIAL 2 MG IVP (11:39)
[2024-11-28] MEDS: Normal Saline 500 ML IV (11:39)
[2024-11-28 11:51] LABS: Abs Immature Grans 0.01 10^3/uL (0.0-0.06); Absolute Basophil Count 0.03 10^3/uL (0.0-0.2); Absolute Eosinophil Count 0.03 10^3/uL (0.0-0.7); Absolute Lymphocyte Count 1.77 10^3/uL (1.2-3.4); Absolute Monocyte Count 0.31 10^3/uL (0.1-0.8); Absolute Neutrophil Count 4.54 10^3/uL (1.2-6.7); Basophils % 0.4 %; Eosinophils % 0.4 %; HCT 40.4 % (40.0-50.0); HGB 13.9 g/dL (13.5-17.5); Immature Grans % 0.1 %; Lymphocytes % 26.5 %; MCHC 34.4 % (32.0-36.0); MCV 87 fL (80-95); Monocytes % 4.6 %; Platelet Count 216 10^3/uL (130-400); RBC 4.64 10^6/uL (4.36-5.78); RDW-SD 38.7 fL; WBC 6.69 10^3/uL (4.4-10.8)
--- NOTE | 2024-11-28 12:06 | ED.GENADUL_ITS ---
Discharge Plan Disposition Patient Disposition: Home Condition: Stable Discharge Details Clinical Impression: Chest pain of uncertain etiology Primary Care Provider: Hood Pinon ED Provider: Rodolfo Price Home Meds and New Rx's Prescriptions: No Action acetaminophen 500 mg capsule 500 mg PO Q6H PRN amoxicillin-pot clavulanate 875-125 mg tablet 1 tab PO BID 10 Days Qty: 20 0RF Discharge Instructions Instructions: Chest Pain, Adult ED Additional Instructions: You were seen in the emergency department for your chest pain with some radiation to your neck and a headache starting this morning around 1030, your cardiac workup is negative, there is no damage to the heart occurring over the labs are within normal limits, your chest x-ray is clear, you have no signs or symptoms of stroke, please return to the emergency department should you have further episodes of this, it would be prince to start taking 81 mg aspirin daily, I have placed you on the follow-up list for cardiology on an outpatient basis but please do return for any emergent concerns. Referrals: Hood Pinon MD [Primary Care Provider] - Discharge Data Discharge Date/Time-TO BE ENTERED AT DEPARTURE: 11/28/24 15:40 HPI General Date/Time Provider Initiated Documentation: 11/28/24 11:25 . HPI Narrative: 54 year-old male presents to ED today by EMS with a chief complaint of dizziness while watching TV- got up and fell back into couch, with minor chest pressure and some sensations traveling to L jaw, with onset about an hour before arrival. Quality described as chest pressure completely improved after 1 nitro by EMS but having headache, no radiation to shortness of breath, diaphoresis, nausea, syncope, injury from fall, endorses intermittently having some minor numbness to lip area. Severity is described as 0/10. Palliating factors include nitro and aspirin by EMS. Provoking factors include nothing specific, no exertional onset. Patient not anticoagulated. Related Data Home Medications ?Medication ?Instructions ?Recorded ?Confirmed acetaminophen 500 mg capsule 500 mg PO Q6H PRN 11/26/24 11/28/24 amoxicillin 875 mg-potassium 1 tab PO BID 10 days #20 tabs 11/26/24 11/28/24 clavulanate 125 mg tablet Previous Rx's ?Medication ?Instructions ?Recorded amoxicillin 875 mg-potassium 1 tab PO BID 10 days #20 tabs 11/26/24 clavulanate 125 mg tablet Allergies Allergy/AdvReac Type Severity Reaction Status Date / Time No Known Allergies Allergy Unverified 11/28/24 11:17 General Stated Complaint: Chest Pain CRYSTAL: 2 Review of Systems All systems reviewed & are unremarkable except as noted in HPI and below Exam Narrative Exam Narrative: GENERAL APPEARANCE: Well-nourished, non-toxic, awake and alert, atraumatic, no acute distress. SKIN: Warm, pink, dry, intact, without rashes/lesions/ulcerations. HEAD: Normocephalic, atraumatic, normal hair distribution for gender/age. EYES: Normal conjunctiva, no exudates on lids/lashes. ENT: Nares patent, no circumoral cyanosis, no facial swelling NECK: Supple, trachea midline, painless cervical ROM. LUNGS/CHEST: Lungs CTA bilaterally- no rhonchi/rales/wheezes diffusely, non- labored respirations, normal A/P diameter, symmetrical expansion, no chest wall deformity HEART (CV/PV): Regular rate and rhythm without murmur, no peripheral edema, no JVD, no carotid bruit. ABDOMEN: Soft, non-distended, no guarding, no tenderness. MSK: Normal ROM, no swelling/deformity to bilateral UEs or LEs, moving all extremities without weakness, no cyanosis, spine midline without tenderness, normal curvature. NEURO: Mental Status AAOx4 - alert to person, place, time, events No facial droop, no forehead involvement. Motor: No focal weakness - strength 5/5 in L UE / R UE has chronic deficits from cerebal palsy at baseline, and bilateral LEs WNL, proximal and distal, symmetric. Sensory: sensation intact to light touch globally. Gait NT. PSYCH: euthymic, cooperative, pleasant, appropriate speech Course Vital Signs Vital signs: Vital Signs Pulse 97 H 11/28/24 11:15 Respiratory Rate 25 H 11/28/24 11:15 Blood Pressure 160/96 H 11/28/24 11:15 Pulse Oximetry 94 11/28/24 11:15 Pulse 97 H 11/28/24 11:15 Respiratory Rate 25 H 11/28/24 11:15 Blood Pressure 160/96 H 11/28/24 11:15 Blood Pressure Position Sitting 11/28/24 11:15 Pulse Oximetry 94 11/28/24 11:15 Oxygen Delivery Method Room Air 11/28/24 11:15 Oxygen Flow Rate 0 11/28/24 11:15 Pain Level 3 11/28/24 11:39 Lab/Test Results Lab/Test Results: Laboratory Tests Range/Units 11/28/24 11:40 WBC (4.4-10.8) 10^3/uL 6.69 RBC (4.36-5.78) 10^6/uL 4.64 Hgb (13.5-17.5) g/dL 13.9 Hct (40.0-50.0) % 40.4 MCV (80-95) fL 87 MCH (27.0-33.0) pg 30.0 MCHC (32.0-36.0) % 34.4 RDW (11.8-14.1) % 12.0 Plt Count (130-400) 10^3/uL 216 MPV (8.0-11.0) fL 10.0 Immature Gran % % 0.1 Neutrophils % % 68.0 Lymphocytes % % 26.5 Monocytes % % 4.6 Eosinophils % % 0.4 Basophils % % 0.4 Nucleated RBC % (0.0-0.3) % 0.0 Absolute Neutrophils (1.2-6.7) 10^3/uL 4.54 Absolute Lymphocytes (1.2-3.4) 10^3/uL 1.77 Absolute Monocytes (0.1-0.8) 10^3/uL 0.31 Absolute Eosinophils (0.0-0.7) 10^3/uL 0.03 Absolute Basophils (0.0-0.2) 10^3/uL 0.03 Medical Decision Making This dictation utilizes [id number] dictation software and may contain unedited grammatical errors. 54 year-old male presents to ED today by EMS with a chief complaint of dizziness while watching TV- got up and fell back into couch, with minor chest pressure and some sensations traveling to L jaw, with onset about an hour before arrival. Quality described as chest pressure completely improved after 1 nitro by EMS but having headache, no radiation to shortness of breath, diaphoresis, nausea, syncope, injury from fall, endorses intermittently having some minor numbness to lip area. Severity is described as 0/10. Palliating factors include nitro and aspirin by EMS. Provoking factors include nothing specific, no exertional onset. Patients' medical history: Cerebral palsy. Family and social history: No EtOH or illicit drug use, no recent travel or sick contacts. Pertinent exam findings / vital signs include neuro intact, baseline right upper extremity deficit, benign cardiopulmonary exam, no carotid bruit bilaterally, benign abdomen, lungs CTA, nontoxic and afebrile. Differential / pathologies of concern include headache, migraine syndrome, pleurisy, palpitations, ACS, not stroke or TIA. Diagnostic studies of: -CBC, CMP, magnesium, serial troponins, BNP, lipase, TSH, XR chest, EKG. - CBC shows no leukocytosis, no anemia - CMP shows no acute abnormality whatsoever - Lipase within normal limits - Magnesium within normal limits - Serial troponins negative - BNP negative - TSH within normal limits - Chest x-ray shows no acute findings - EKG sinus rhythm at 90 bpm with P waves followed by narrow complex QRS with normal axis, poor R wave progression, normal QT QTc, no ST depressions or reciprocal elevations, no new left bundle branch block Interventions of: -PRN Nitro ordered PRN but not needed- no chest pain, 2 mg morphine ordered as needed but patient's chest pain had resolved shortly after arrival. ED Course/Assessment/Plan: 54-year-old male with no cardiac history presents with brief chest pressure and some lip numbness and has a minor headache, his cardiac workup is negative with reliable repeat troponins, EKG shows no ischemic changes his chest pain resolved shortly after arrival he does have a lingering headache possibly from nitroglycerin but he did have the headache before all of this began, I question whether this is complex migraine, he is neuro at his baseline without any deficits whatsoever I do not suspect a TIA there is no period of postictal state to suggest seizure, I counseled the patient on following up with cardiology as an outpatient with a low heart score to obtain outpatient echo and stress for baseline comparison studies. Findings not consistent with ACS, stroke, pneumonia, infectious etiology, electrolyte abnormality, arrhythmia, heart failure. Disposition of chest pain of uncertain etiology. Patient verbalized understanding of the plan and return to ED criteria and engaged in shared decision making. Medical Records Medical records reviewed: Yes I reviewed the patient's medical records. Imaging Data Radiologic Study: Attestation: I personally reviewed and interpreted this imaging study as follows: Imaging: X-Ray Radiologist's impression: EXAM: XR CHEST 2V PA LATERAL CLINICAL HISTORY: chest pain. TECHNIQUE: 2D digital imaging was performed. COMPARISON: CR XR RIBS RT W PA LAT CHEST from 09/23/2021 FINDINGS: 2 views: Heart size is normal. The mediastinum is not widened. Bilateral hyperinflation but no infiltrates nor pleural effusions. No pulmonary edema. No pneumothorax. No fractures. IMPRESSION: No acute pulmonary findings.Bilateral hyperinflation. Lab Data Lab results reviewed: Yes I reviewed the patient's lab results. Labs: Laboratory Tests Range/Units 11/28/24 11/28/24 11:40 12:40 WBC (4.4-10.8) 10^3/uL 6.69 RBC (4.36-5.78) 10^6/uL 4.64 Hgb (13.5-17.5) g/dL 13.9 Hct (40.0-50.0) % 40.4 MCV (80-95) fL 87 MCH (27.0-33.0) pg 30.0 MCHC (32.0-36.0) % 34.4 RDW (11.8-14.1) % 12.0 Plt Count (130-400) 10^3/uL 216 MPV (8.0-11.0) fL 10.0 Immature Gran % % 0.1 Neutrophils % % 68.0 Lymphocytes % % 26.5 Monocytes % % 4.6 Eosinophils % % 0.4 Basophils % % 0.4 Nucleated RBC % (0.0-0.3) % 0.0 Absolute Neutrophils (1.2-6.7) 10^3/uL 4.54 Absolute Lymphocytes (1.2-3.4) 10^3/uL 1.77 Absolute Monocytes (0.1-0.8) 10^3/uL 0.31 Absolute Eosinophils (0.0-0.7) 10^3/uL 0.03 Absolute Basophils (0.0-0.2) 10^3/uL 0.03 Sodium (136-145) mmol/L 136 Potassium (3.5-5.1) mmol/L 4.0 Chloride (98-107) mmol/L 100 Carbon Dioxide (21.0-32.0) mmol/L 25.3 Anion Gap (3-11) mmol/L 10.7 BUN (7-18) mg/dL 8 Creatinine (0.70-1.30) mg/dL 0.9 Est GFR (CKD-EPI 2020) (mL/min/1.73m2) 100.24 Glucose (74-106) mg/dL 97 Calcium (8.5-10.1) mg/dL 9.5 Magnesium (1.8-2.4) mg/dL 1.9 Total Bilirubin (0.2-1.0) mg/dL 0.6 AST (15-37) U/L 20 ALT (16-63) U/L 14 L Alkaline Phosphatase (46-116) U/L 56 Troponin I (<or=76) ng/L 7 6 NT-Pro-B Natriuret Pep (<300) pg/mL 33 Total Protein (6.4-8.2) g/dL 7.6 Albumin (3.4-5.0) g/dL 4.5 Lipase (<78) U/L 44 TSH (0.36-3.74) uIU/mL 1.14 Quality:SDOH Health Related Social Needs: No Data to Display PFSH All Active Problems (Updated 11/28/24 @ 15:14 by ILANA Briceño) Chest pain of uncertain etiology (Acute) Periapical abscess (Acute) Colon polyp, hyperplastic (Acute ~08/2020) Medical History Cerebral palsy (R) sided weakness. Ambulates with a limp, and per pt. 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
[2024-11-28 12:18] LABS: ALT 14 U/L (16-63); AST 20 U/L (15-37); Albumin 4.5 g/dL (3.4-5.0); Alkaline Phosphatase 56 U/L (46-116); Anion Gap 10.7 mmol/L (3-11); BUN 8 mg/dL (7-18); Bilirubin, Total 0.6 mg/dL (0.2-1.0); CO2 25.3 mmol/L (21.0-32.0); CREATININE 0.9 mg/dL (0.70-1.30); Calcium 9.5 mg/dL (8.5-10.1); Chloride 100 mmol/L (98-107); Estimated GFR 100.24 (mL/min/1.73m2); Glucose 97 mg/dL (74-106); Lipase 44 U/L (<78); Magnesium 1.9 mg/dL (1.8-2.4); NT-proBNP 33 pg/mL (<300); Sodium 136 mmol/L (136-145); TSH (W/Ref FT4) 1.14 uIU/mL (0.36-3.74); Total Protein 7.6 g/dL (6.4-8.2); Troponin I 7 ng/L (<or=76)
[2024-11-28 13:15] LABS: Troponin I 6 ng/L (<or=76)
--- NOTE | 2024-11-28 14:15 | DI.RAD_ITS ---
Exam(s) XR CHEST 2V PA LATERAL EXAM: XR CHEST 2V PA LATERAL CLINICAL HISTORY: chest pain. TECHNIQUE: 2D digital imaging was performed. COMPARISON: CR XR RIBS RT W PA LAT CHEST from 09/23/2021 FINDINGS: 2 views: Heart size is normal. The mediastinum is not widened. Bilateral hyperinflation but no infiltrates nor pleural effusions. No pulmonary edema. No pneumotho rax. No fractures. IMPRESSION: No acute pulmonary findings.Bilateral hyperinflation. DATA REPOSITORY: RADIATION DOSE DELIVERED:
[2024-11-28 15:22] LABS: Troponin I 6 ng/L (<or=76)
== END 2024-11-28 15:40 | disposition home or self-care (01) ==
PROVIDERS: Emergency Provider Physician Assistant; PCP Family Medicine
DX: R07.9 Chest pain, unspecified (principal); G80.9 Cerebral palsy, unspecified; Z87.891 Personal history of nicotine dependence
CPT/HCPCS: 80053; 83690; 93005; 96374; 99285; 71046; 83735; 83880; 84443; 84484; 85025; 93010; 99284; J2270

== ENCOUNTER 2024-12-05 10:48 | Outpatient (REF) | payer MEDICARE, MEDICAID, SELFPAY ==
[2024-12-06 19:07] LABS: Calculated LDL 49 mg/dL (<100); Cholesterol 117 mg/dL (<200); HDL Cholesterol 51 mg/dL (>or=40); Triglyceride 85 mg/dL (<150)
== END 2024-12-05 10:49 | disposition home or self-care (01) ==
LOC: NCHCN 10:48
PROVIDERS: PCP Family Medicine; Visit Provider Family Medicine
DX: Z00.00 Encounter for general adult medical examination without abnormal findings (principal)
CPT/HCPCS: 80061

== ENCOUNTER 2024-12-07 02:09 | Outpatient (CLI) | payer MEDICARE, MEDICAID, SELFPAY ==
--- NOTE | 2024-12-07 | DI.CT_ITS ---
Exam(s) CT HEAD WO EXAM: CT HEAD WO CLINICAL HISTORY: NEW ONSET HEADACHE,R51.9. TECHNIQUE: Imaging Protocol: Axial computed tomography images with coronal and sagittal reformatted images were created and reviewed COMPARISON: CT CT HEAD WO from 09/23/2021 FINDINGS: Ventricles and Extra axial spaces: There is again seen a large extra-axial collection along the left parietal bone measuring 3.1 x 5.9 cm. It is unchanged in size. It does exert a mass effect on the a djacent parietal lobe and temporal lobe. This may represent a developmental abnormality such as an a rachnoid cyst. There is unchanged asymmetric enlargement of the left lateral ventricle. This may be secondary to cerebral volume loss. Hemorrhage: None. Cerebral parenchyma: Normal. No evidence of an acute territorial infarct. Midline shift: None. Brainstem/Cerebellum: Normal. Calvarium: Normal. Visualized Paranasal sinuses/Mastoids: Clear. Soft Tissues: Unremarkable. IMPRESSION: 1. Stable extra-axial fluid collection along the left parietal bone measuring 3.1 x 5.9 cm. This may represent an arachnoid cyst. Further characterization may be obtained with of pre and postcontrast MRI of the brain. 2. No acute intracranial process. RADIATION DOSE DELIVERED: 805.29mGy.cm Total DLP DATA REPOSITORY: All CT scans at this facility are submitted to the National Radiology Data Registry (NRDR) Dose Index Registry (DIR) with the [employer] ([employer]). RADIATION OPTIMIZATION: All CT scans at this facility use at least one of these dose optimization te chniques: automated exposure control; mA and/or kV adjustment per patient size (includes targeted exa ms where dose is matched to clinical indication); or iterative reconstruction.
== END 2024-12-07 02:29 ==
LOC: DI 02:09
PROVIDERS: PCP Family Medicine; Visit Provider Family Medicine
DX: R51.9 Headache, unspecified (principal)
CPT/HCPCS: 70450

== ENCOUNTER 2024-12-15 02:06 | Outpatient (CLI) | payer MEDICARE, MEDICAID, SELFPAY ==
--- NOTE | 2024-12-15 | DI.NM_ITS ---
APPROVED REPORT Exam: Pharmacologic Patient Location: Out-Patient Room/Bed: Stress Nurse: Naty Mohamud RN, Maricruz Stewart RN Ordering Provider:DARIUS EASTON, Contact Number: [phone] BMI: 19.91 Baseline Rhythm: Sinus Rhythm Indications: intermittent CP Medical History Medical History: cerebral palsy(right sided weakness) Cardiac Medications: aspirin Allergies: NKA Cardiac Risk Factors: family hx, former smoker Previous Cardiac Procedures: none Pretest Chest Pain Characteristics: none Exercise History: Indeterminate Physical Disabilities: right sided weakness Lung Sounds: Clear to auscultation Heart Sounds: Regular Stress Test Details Test: Exercise stress converted to pharmacologic stress due to failure to obtain a diagnostic stress test. Reason for pharmacologic stress test: changed from exercise stress test due to inability to reach t arget heart rate. Nuclear Acquisition: Rest Tc-99m/Stress Tc-99m 1 day Rest Isotope: Tc-99m Sestamibi. Dose: 10.0 Date: 12/15/2024 Injection Time: 1100 Stress Isotope: Tc-99m Sestamibi. Dose: 30.0 Date: 12/15/2024 Injection Time: 1300 HR Resting HR Supine: 69 bpm Max Heart Rate (APMHR): 164 bpm Resting HR Standin bpm Target HR (85% APMHR): 139 bpm Max HR Achieved: 132 bpm % of APMHR: 80 Recovery HR: 89 bpm HR response to stress: Normal HR response to stress BP Resting BP Supine: 120/80 mmHg Resting BP Standin/90 mmHg Max BP: 162/80 mmHg Recovery BP: 132/68 mmHg BP response to stress: Normal blood pressure response to stress. ECG Resting ECG: Sinus Rhythm Stress ECG: Sinus Tachycardia ST Change: Nondiagnostic low heart rate Recovery ECG: Sinus Rhythm Recovery ST Change: Nondiagnostic low heart rate Clinical Reason for Termination: physical limitation Stress Symptoms: fast heart rate, leg fatigue Exercise duration: 03 min15 sec Highest Stage Reached: 3.50 Exercise capacity: 3.50 METs Angina Score: None Rate Pressure Product: [id number] Stress ECG Conclusion 1. Resting electrocardiogram was normal 2. Patient underwent testing using a combination of low-level exercise and pharmacologic stress with regadenoson 3. Peak heart rate achieved was 80% of maximal predicted for age 4. Electrocardiographic portion of the test was nondiagnostic 5. There were no significant dysrhythmias 6. See MPI report Stress Test Summary STAGE Time (mins) Speed (mph) Grade (%) HR BP SpO2 SYMPTOMS METS Supine 69 120/80 98 Standing 76 138/90 1 3 1.7 10 100 4.5 1 min post Lexiscan injection 124 162/80 99 3 min post Lexiscan injection 103 150/74 98 6 min post Lexiscan injection 90 138/80 99 9 min post Lexiscan injection 89 132/68 Patient transitioned from Bruse protocol to lexiscan protocol r/t staff concern related to balance an d leg fatigue. Patient proceeded to imaging ambulatory in no apparent distress. MPI Conclusion Myocardial perfusion is normal. There is no ischemia or evidence of prior infarction Left ventricular systolic function appears normal, no wall motion abnormalities
[2024-12-15] MEDS: Regadenoson 0.4 MG/5 ML SYR IVP (15:11)
== END 2024-12-15 02:26 ==
LOC: DI 02:06
PROVIDERS: PCP Family Medicine; Visit Provider Internal Medicine Cardiovascular Disease
DX: R07.9 Chest pain, unspecified (principal)
CPT/HCPCS: 78452; 93016; 93018; 93017; J2785